=== PATIENT | male | born 1950 | race African-American/Black ===

== ENCOUNTER 2017-11-09 22:23 | Inpatient (IN) | payer MEDICARE ==
[~2017-11-09] VITALS: Ht 180.3 cm; Wt 75.6 kg
[2017-11-09] MEDS ORDERED: PHEN250I IV (22:44)
[2017-11-09] MEDS ORDERED: INSLAN SQ (22:44)
[2017-11-09 22:47] LABS: GLUCOSE,POINT OF CARE 108 MG/DL (70-110)
[2017-11-10 00:08] LABS: BASOPHILS % (AUTO) 0.9 % (0.0-2.0); HEMATOCRIT 39.3 % (41-53); LYMPHOCYTES # (AUTO) 1.8 K/uL (1.0-4.8); LYMPHOCYTES % (AUTO) 32.7 % (22.0-44.0); MEAN CORPUSCULAR HEMOGLOBIN 30.7 pg (26.0-34.0); MEAN CORPUSCULAR HGB CONC 33.1 G/dL (31.0-37.0); MEAN CORPUSCULAR VOLUME 93 fL (80-100); MONOCYTES # (AUTO) 0.2 K/uL (0.1-1.0); MONOCYTES % (AUTO) 3.7 % (2.0-9.0); NEUTROPHILS # (AUTO) 3.3 K/uL (1.8-7.7); NEUTROPHILS % (AUTO) 59.7 % (40.0-70.0); PLATELET COUNT (AUTO) 215 K/uL (150-450); RED BLOOD CELL COUNT(AUTO) 4.25 MIL/uL (4.50-5.90)
[2017-11-10 00:14] LABS: ANION GAP 9 mmol/L (8-16); CALCIUM, TOTAL 8.9 mg/dL (8.8-10.5); CARBON DIOXIDE 27 mmol/L (22-29); CHLORIDE 101 mmol/L (98-107); CREATININE 0.58 mg/dL (0.60-1.30); GLOMERULAR FILTR. RATE CALC > 60 mL/min (>60); GLUCOSE,RANDOM 108 mg/dL (70-110); POTASSIUM 4.2 mmol/L (3.5-5.1); SODIUM SERUM 137 mmol/L (136-145); UREA NITROGEN, BLOOD 9 mg/dL (7-18)
[2017-11-10 00:20] LABS: ALANINE AMINOTRANSFERASE 37 U/L (12-78); ALKALINE PHOSPHATASE 68 U/L (46-116); ASPARTATE AMINOTRANSFERASE 46 U/L (15-37); BILIRUBIN,TOTAL 0.4 mg/dL (0.1-1.0); TOTAL PROTEIN, SERUM 7.7 g/dL (6.4-8.2)
[2017-11-10 00:47] LABS: GLUCOSE,POINT OF CARE 114 MG/DL (70-110)
[2017-11-10 00:57] LABS: ALBUMIN 3.3 g/dL (3.4-5.0); LIPASE 151 U/L (73-393)
[2017-11-10 01:34] LABS: PHENYTOIN (DILANTIN) 7.7 mcg/mL (10.0-20.0)
[2017-11-10] MEDS ORDERED: PHENYTOIN SODIUM 300 MG in SODIUM CHLORIDE 0.9% 100 ML IV ONE (03:00)
[2017-11-10] MEDS ORDERED: ACETAMINOPHEN 325 MG TABLET PO PRN ×2 (03:15→11:00)
[2017-11-10] MEDS ORDERED: 0.9% SODIUM CHLORIDE 10 ML SYRINGE IVP PRN (03:15)
[2017-11-10] MEDS ORDERED: ONDANSETRON HCL 4 MG/2 ML VIAL IVP PRN (03:15)
[2017-11-10 03:16] LABS: APPEARANCE,URINE CLEAR (CLEAR); BILIRUBIN,URINE NEGATIVE (NEGATIVE); GLUCOSE, URINE (UA) NEGATIVE (NEGATIVE); KETONES,URINE NEGATIVE (NEGATIVE); LEUKOCYTE ESTERASE ,URINE NEGATIVE (NEGATIVE); NITRATE,URINE NEGATIVE (NEGATIVE); OCCULT BLOOD,URINE NEGATIVE (NEGATIVE); PROTEIN,URINE NEGATIVE (NEGATIVE)
[2017-11-10 03:19] LABS: AMPHET/METH SCREEN,URINE NEGATIVE (NEGATIVE); BARBITURATE SCREEN, URINE NEGATIVE (NEGATIVE); BENZODIAZEPINES SCREEN,URINE NEGATIVE (NEGATIVE); CANNABINOID SCREEN,URINE NEGATIVE (NEGATIVE); COCAINE SCREEN,URINE NEGATIVE (NEGATIVE); METHADONE SCREEN, URINE NEGATIVE (NEGATIVE); OPIATE SCREEN,URINE NEGATIVE (NEGATIVE); PHENCYCLIDINE SCREEN,URINE NEGATIVE (NEGATIVE)
[2017-11-10 09:13] LABS: GLUCOSE,POINT OF CARE 101 MG/DL (70-110)
[2017-11-10 09:47] VITALS: BP 143/81
[2017-11-10] MEDS ORDERED: MAGNESIUM HYDROXIDE SUSPENSION 30 ML UDCUP PO PRN (11:00)
[2017-11-10] MEDS ORDERED: DEXTROSE 50%-WATER 25 GM/50 ML SYRINGE IVP PRN (11:00)
[2017-11-10] MEDS ORDERED: ALBUTEROL SULFATE 2.5 MG/0.5 ML NEB SOLUTION NEB PRN (11:00)
[2017-11-10 11:25] VITALS: BP 127/69
[2017-11-10] MEDS: ASPIRIN 81 MG CHEWABLE TABLET PO SCH (12:11)
[2017-11-10] MEDS: INSULIN ASPART 100 UNITS/ML SQ PRN ×2 (12:11→20:46)
[2017-11-10 16:20] VITALS: BP 129/61
[2017-11-10] MEDS: HEPARIN SODIUM,PORCINE 5,000 UNITS/ML VIAL SQ SCH ×2 (16:57→23:57)
[2017-11-10 19:15] VITALS: BP 144/76
[2017-11-10 19:57] LABS: GLUCOMETER DEV NAME(LOC) 5S 2N; GLUCOSE,POINT OF CARE 202 MG/DL (70-110)
[2017-11-10 19:58] LABS: GLUCOMETER DEV NAME(LOC) 5S 1L; GLUCOSE,POINT OF CARE 96 MG/DL (70-110)
[2017-11-10] MEDS: DOCUSATE SODIUM 100 MG CAPSULE PO SCH (20:47)
[2017-11-10] MEDS: PHENYTOIN 100 MG/4 ML SUSPENSION UDCUP PO SCH (20:48)
[2017-11-10 21:42] LABS: GLUCOMETER DEV NAME(LOC) 5S 1L; GLUCOSE,POINT OF CARE 196 MG/DL (70-110)
[2017-11-11] VITALS (7 sets, daily range): BP systolic 115–134; BP diastolic 58–72
[2017-11-11] MEDS: HEPARIN SODIUM,PORCINE 5,000 UNITS/ML VIAL SQ SCH ×3 (09:10→23:40)
[2017-11-11] MEDS: ASPIRIN 81 MG CHEWABLE TABLET PO SCH (09:10)
[2017-11-11] MEDS: PANTOPRAZOLE SODIUM 40 MG DR TABLET PO SCH (09:10)
[2017-11-11] MEDS: DOCUSATE SODIUM 100 MG CAPSULE PO SCH ×2 (09:10→20:16)
[2017-11-11] MEDS: INSULIN ASPART 100 UNITS/ML SQ PRN ×2 (13:37→20:15)
[2017-11-11] MEDS: PHENYTOIN 100 MG/4 ML SUSPENSION UDCUP PO SCH (20:16)
[2017-11-11 20:57] LABS: GLUCOMETER DEV NAME(LOC) 5S 2N; GLUCOSE,POINT OF CARE 91 MG/DL (70-110)
[2017-11-11 20:57] LABS: GLUCOMETER DEV NAME(LOC) 5S 2N; GLUCOSE,POINT OF CARE 260 MG/DL (70-110)
[2017-11-12 00:18] LABS: GLUCOMETER DEV NAME(LOC) 5S 1L; GLUCOSE,POINT OF CARE 107 MG/DL (70-110)
[2017-11-12 00:18] LABS: GLUCOMETER DEV NAME(LOC) 5S 1L; GLUCOSE,POINT OF CARE 223 MG/DL (70-110)
[2017-11-12 03:30] VITALS: BP 119/66
[2017-11-12] MEDS: HEPARIN SODIUM,PORCINE 5,000 UNITS/ML VIAL SQ SCH ×2 (07:54→17:11)
[2017-11-12] MEDS: ASPIRIN 81 MG CHEWABLE TABLET PO SCH (07:55)
[2017-11-12] MEDS: PANTOPRAZOLE SODIUM 40 MG DR TABLET PO SCH (07:55)
[2017-11-12] MEDS: DOCUSATE SODIUM 100 MG CAPSULE PO SCH ×2 (07:55→20:08)
[2017-11-12 07:58] LABS: GLUCOMETER DEV NAME(LOC) 5S 2N; GLUCOSE,POINT OF CARE 129 MG/DL (70-110)
[2017-11-12 07:59] VITALS: BP 148/79
[2017-11-12 11:27] VITALS: BP 133/64
[2017-11-12] MEDS: INSULIN ASPART 100 UNITS/ML SQ PRN ×2 (12:23→21:00)
[2017-11-12 15:26] VITALS: BP 104/69
[2017-11-12 19:33] VITALS: BP 128/77
[2017-11-12] MEDS: PHENYTOIN 100 MG/4 ML SUSPENSION UDCUP PO SCH (20:08)
[2017-11-12 23:04] VITALS: BP 120/70
[2017-11-13] MEDS: HEPARIN SODIUM,PORCINE 5,000 UNITS/ML VIAL SQ SCH ×3 (00:12→16:58)
[2017-11-13 04:07] VITALS: BP 124/67
[2017-11-13 07:12] VITALS: BP 134/76
[2017-11-13] MEDS: DOCUSATE SODIUM 100 MG CAPSULE PO SCH ×2 (08:42→21:56)
[2017-11-13] MEDS: PANTOPRAZOLE SODIUM 40 MG DR TABLET PO SCH (08:42)
[2017-11-13] MEDS: ASPIRIN 81 MG CHEWABLE TABLET PO SCH (08:42)
[2017-11-13] MEDS ORDERED: MECLIZINE HCL 25 MG TABLET PO PRN (11:15)
[2017-11-13 11:28] VITALS: BP 121/63
[2017-11-13 11:52] LABS: BASOPHILS % (AUTO) 0.8 % (0.0-2.0); EOSINOPHILS % (AUTO) 1.6 % (1.0-6.0); HEMATOCRIT 41.8 % (41-53); HEMOGLOBIN 13.7 g/dL (13.5-17.5); LYMPHOCYTES # (AUTO) 1.8 K/uL (1.0-4.8); LYMPHOCYTES % (AUTO) 42.8 % (22.0-44.0); MEAN CORPUSCULAR HGB CONC 32.8 G/dL (31.0-37.0); MEAN CORPUSCULAR VOLUME 94 fL (80-100); MONOCYTES # (AUTO) 0.6 K/uL (0.1-1.0); MONOCYTES % (AUTO) 13.6 % (2.0-9.0); NEUTROPHILS # (AUTO) 1.8 K/uL (1.8-7.7); NEUTROPHILS % (AUTO) 41.2 % (40.0-70.0); PLATELET COUNT (AUTO) 204 K/uL (150-450); RED BLOOD CELL COUNT(AUTO) 4.43 MIL/uL (4.50-5.90)
[2017-11-13] MEDS: INSULIN ASPART 100 UNITS/ML SQ PRN ×2 (12:19→21:58)
[2017-11-13 12:20] LABS: ANION GAP 3 mmol/L (8-16); CALCIUM, TOTAL 8.8 mg/dL (8.8-10.5); CARBON DIOXIDE 31 mmol/L (22-29); CHLORIDE 98 mmol/L (98-107); CREATININE 0.94 mg/dL (0.60-1.30); GLOMERULAR FILTR. RATE CALC > 60 mL/min (>60); GLUCOSE,RANDOM 243 mg/dL (70-110); POTASSIUM 4.5 mmol/L (3.5-5.1); SODIUM SERUM 132 mmol/L (136-145); UREA NITROGEN, BLOOD 15 mg/dL (7-18)
[2017-11-13 12:27] LABS: ALANINE AMINOTRANSFERASE 48 U/L (12-78); ALBUMIN 2.9 g/dL (3.4-5.0); ALKALINE PHOSPHATASE 65 U/L (46-116); ASPARTATE AMINOTRANSFERASE 44 U/L (15-37); BILIRUBIN,TOTAL 0.1 mg/dL (0.1-1.0); PHENYTOIN (DILANTIN) 12.2 mcg/mL (10.0-20.0); TOTAL PROTEIN, SERUM 7.7 g/dL (6.4-8.2)
[2017-11-13 15:04] VITALS: BP 107/64
[2017-11-13] MEDS ORDERED: PHEN250I PO (17:27)
[2017-11-13] MEDS ORDERED: MECL-111 PO (17:28)
[2017-11-13] MEDS: PHENYTOIN 100 MG/4 ML SUSPENSION UDCUP PO SCH (21:55)
[2017-11-14 00:58] LABS: GLUCOMETER DEV NAME(LOC) 5S 2N; GLUCOSE,POINT OF CARE 152 MG/DL (70-110)
[2017-11-14 00:58] LABS: GLUCOMETER DEV NAME(LOC) 5S 2N; GLUCOSE,POINT OF CARE 165 MG/DL (70-110)
[2017-11-14 00:58] LABS: GLUCOMETER DEV NAME(LOC) 5S 2N; GLUCOSE,POINT OF CARE 191 MG/DL (70-110)
[2017-11-14 00:58] LABS: GLUCOMETER DEV NAME(LOC) 5S 2N; GLUCOSE,POINT OF CARE 120 MG/DL (70-110)
[2017-11-14 00:58] LABS: GLUCOMETER DEV NAME(LOC) 5S 2N; GLUCOSE,POINT OF CARE 106 MG/DL (70-110)
[2017-11-14 00:58] LABS: GLUCOMETER DEV NAME(LOC) 5S 2N; GLUCOSE,POINT OF CARE 202 MG/DL (70-110)
[2017-11-14 07:30] VITALS: BP 129/74
[2017-11-14] MEDS: DOCUSATE SODIUM 100 MG CAPSULE PO SCH (09:00)
[2017-11-14] MEDS: PANTOPRAZOLE SODIUM 40 MG DR TABLET PO SCH (09:44)
[2017-11-14] MEDS: HEPARIN SODIUM,PORCINE 5,000 UNITS/ML VIAL SQ SCH ×2 (09:44)
[2017-11-14] MEDS: ASPIRIN 81 MG CHEWABLE TABLET PO SCH (09:44)
[2017-11-14 11:15] VITALS: BP 119/73
[2017-11-14 12:34] LABS: GLUCOMETER DEV NAME(LOC) 5S 2N; GLUCOSE,POINT OF CARE 299 MG/DL (70-110)
[2017-11-14 12:34] LABS: GLUCOMETER DEV NAME(LOC) 5S 2N; GLUCOSE,POINT OF CARE 99 MG/DL (70-110)
[2017-11-14] MEDS: INSULIN ASPART 100 UNITS/ML SQ PRN (13:25)
[2017-11-15 05:53] LABS: GLUCOMETER DEV NAME(LOC) 5S 1L; GLUCOSE,POINT OF CARE 96 MG/DL (70-110)
== END 2017-11-14 13:20 | disposition home or self-care (01) | DRG 309 ==
LOC: EMS 22:25 → 5N 11-10 05:31
PROVIDERS: ADMIT Internal Medicine; ATTEND Internal Medicine
DX: R00.1 Bradycardia, unspecified (principal); G45.9 Transient cerebral ischemic attack, unspecified; J44.9 Chronic obstructive pulmonary disease, unspecified; E11.9 Type 2 diabetes mellitus without complications; E78.00 Pure hypercholesterolemia, unspecified; G40.909 Epilepsy, unspecified, not intractable, without status epilepticus; I10 Essential (primary) hypertension; F14.90 Cocaine use, unspecified, uncomplicated; F17.210 Nicotine dependence, cigarettes, uncomplicated; Z79.4 Long term (current) use of insulin; Z79.899 Other long term (current) drug therapy
CPT/HCPCS: 70450; 82962; 84443; 93005; 93306; 93880; 96360; 97116; 97162; 97530; 99285; J1165; J1644; J7050